=== PATIENT | female | born 2000 | race Caucasian/White ===

== ENCOUNTER 2020-03-27 12:59 | Emergency (ER) | payer OTHER ==
[~2020-03-27] VITALS: Ht 157.5 cm; Wt 81.6 kg
[2020-03-27 13:13] VITALS: BP 126/58
--- NOTE | 2020-03-27 13:20 | NUR ---
Pt ambulated to bed 12 with steady gait
--- NOTE | 2020-03-27 13:27 | NUR ---
20 y/o female from home c/o pruritus to bilateral hands since yesterday. Denies pain to hands. Slight redness to palm of hands. Skin warm, dry, intact. Pt states approx 34 wks . LMP 09/12/19. Denies symptoms. VSS
[2020-03-27 14:07] VITALS: BP 126/58
--- NOTE | 2020-03-27 14:07 | NUR ---
Patient discharged with v/s stable. Written and verbal after care instructions given and explained. Patient alert, oriented and verbalized understanding of instructions. Ambulatory with steady gait. All questions addressed prior to discharge. ID band removed. Patient advised to follow up with PMD. Rx of Benadryl 25mg and Cortizone 1% Topical Cream given. Patient educated on indication of medication including possible reaction and side effects. Opportunity to ask questions provided and answered.
== END 2020-03-27 14:07 | disposition home or self-care (01) ==
LOC: MED 12:59
DX: R21 Rash and other nonspecific skin eruption (principal); R03.0 Elevated blood-pressure reading, without diagnosis of hypertension
CPT/HCPCS: 99283; Q0163; 99282

== ENCOUNTER 2020-04-04 14:05 | Observation (INO) | payer OTHER ==
[~2020-04-04] VITALS: Ht 157.5 cm; Wt 80.7 kg
[2020-04-04] MEDS ORDERED: BETAMETH ACET/BETAMETH NA PH 30 MG/5 ML VIAL IM SCH (14:20)
[2020-04-04 14:25] VITALS: BP 98/56
[2020-04-04] MEDS ORDERED: URSO250T9 PO (14:48)
[2020-04-05] MEDS ORDERED: PNV91TAB10 PO (15:33)
== END 2020-04-04 15:25 | disposition home or self-care (01) ==
LOC: MLD 14:05
PROVIDERS: ADMIT Obstetrics & Gynecology; ATTEND Obstetrics & Gynecology
DX: O26.613 Liver and biliary tract disorders in pregnancy, third trimester (principal); K83.1 Obstruction of bile duct; Z3A.35 35 weeks gestation of pregnancy
CPT/HCPCS: 96372; G0378; J0702; 81000

== ENCOUNTER 2020-04-05 12:19 | Outpatient (CLI) | payer OTHER ==
[~2020-04-05 12:19] MED LIST: URSO250T9 PO
[2020-04-05] MEDS ORDERED: PNV91TAB10 PO (15:33)
== END 2020-04-05 19:38 | disposition home or self-care (01) ==
LOC: U 12:19 → MLB 19:38
PROVIDERS: ATTEND Obstetrics & Gynecology
DX: Z01.818 Encounter for other preprocedural examination (principal); U07.1 COVID-19
CPT/HCPCS: U0003-CS

== ENCOUNTER 2020-04-05 14:56 | Observation (INO) | payer OTHER ==
[~2020-04-05] VITALS: Ht 157.5 cm; Wt 80.7 kg
[2020-04-05] MEDS ORDERED: BETAMETH ACET/BETAMETH NA PH 30 MG/5 ML VIAL IM SCH (15:10)
[2020-04-05] MEDS ORDERED: PNV91TAB10 PO (15:33)
== END 2020-04-05 15:56 | disposition home or self-care (01) ==
LOC: MLD 14:56
PROVIDERS: ADMIT Obstetrics & Gynecology; ATTEND Obstetrics & Gynecology
DX: O26.613 Liver and biliary tract disorders in pregnancy, third trimester (principal); K83.1 Obstruction of bile duct; O36.8130 Decreased fetal movements, third trimester, not applicable or unspecified; O26.893 Other specified pregnancy related conditions, third trimester; L29.9 Pruritus, unspecified; Z3A.35 35 weeks gestation of pregnancy
CPT/HCPCS: 59025; 96372; G0378; J0702